=== PATIENT | male | born 1990 | race Two or more races ===

== ENCOUNTER 2017-08-22 21:40 | Emergency (ER) | payer SELFPAY | END 2017-08-22 23:10 | disposition home or self-care (01) | LOC: ER 21:40 | DX: S69.92XA Unspecified injury of left wrist, hand and finger(s), initial encounter (principal); W22.01XA Walked into wall, initial encounter; Y93.89 Activity, other specified; Y99.8 Other external cause status; Y92.89 Other specified places as the place of occurrence of the external cause | CPT/HCPCS: 29125; 73130; 99284-25 ==

== ENCOUNTER → 2018-12-04 | Outpatient (CLI) | payer BC ==
[2017-08-22 22:05] VITALS: BP 134/84
[~2018-12-04] MED LIST: HYDR-3164 PO
--- NOTE | 2018-12-04 13:31 | RAD ---
EXAM: Abdomen sonogram. HISTORY: Abnormal liver function laboratory values. TECHNIQUE: Sonographic imaging of the abdomen was performed. COMPARISON: None. FINDINGS: The liver is enlarged. There is hepatic steatosis. No focal hepatic lesion is seen. The common bile duct is normal in caliber. The gallbladder is unremarkable. The pancreatic tail, aorta and inferior cava are obscured due to bowel gas. The right kidney is unremarkable. IMPRESSION: 1. Hepatic megaly and hepatic steatosis. 2. Partially obscured midline structures due to bowel gas. Electronically signed by: Stephanie Barrera MD (12/04/2018 1:28 PM) [facility]
== END | disposition home or self-care (01) ==
LOC: US 07:55
PROVIDERS: ATTEND Family Medicine
DX: K76.0 Fatty (change of) liver, not elsewhere classified (principal)
CPT/HCPCS: 76705

== ENCOUNTER → 2020-01-08 | Outpatient (CLI) | payer SELFPAY ==
[2017-08-22 22:05] VITALS: BP 134/84
--- NOTE | 2020-01-08 16:26 | KCIC ---
EXAM: Right elbow, 3 views. HISTORY: Fall. Pain. COMPARISON: None. FINDINGS: 3 views of the right elbow are obtained. There is no fracture, dislocation or subluxation. There is no elbow effusion. IMPRESSION: No acute osseous finding. Electronically signed by: Stephanie Barrera MD (01/08/2020 4:23 PM) [facility]
== END | disposition home or self-care (01) ==
LOC: KCIC 15:35
PROVIDERS: ATTEND Nurse Practitioner Gerontology
DX: M25.521 Pain in right elbow (principal)
CPT/HCPCS: 73070